=== PATIENT | female | born 1950 | race Caucasian/White ===

== ENCOUNTER 2022-07-08 06:55 | Inpatient (IN) | payer MEDICARE ==
[2022-07-04 13:52] LABS: BASOPHILS % 0.2 % (0.0-1.0); HEMATOCRIT 41.2 % (34.2-44.1); HEMOGLOBIN 13.8 g/dL (12.0-16.0); LYMPHOCYTES % 31.2 % (18.0-39.1); MEAN CORPUSCULAR HGB CONC 33.5 g/dL (31-35); MEAN CORPUSCULAR VOLUME 95.6 fL (81-99); MONOCYTES # (AUTO) 0.5 (0.2-0.8); MONOCYTES % 8.1 % (4.4-11.3); NEUTROPHILS # (AUTO) 3.8 (2.1-6.9); NEUTROPHILS % 59.7 % (38.7-80.0); PLATELET COUNT 252 x10e3/uL (140-360); RED BLOOD COUNT 4.31 x10e6/uL (3.6-5.1)
[~2022-07-08] VITALS: Ht 162.6 cm; Wt 102.1 kg
[~2022-07-08 06:55] MED LIST: ALAWAY10 ML OP/OT; ATIVAN1 MG PO; BOTOX100 UNIT IV; CLARITIN10 MG PO; DYMISTA NASAL S23 GM INH; ESTRACE42.5 GM TOP; NITROFURANTOIN100 M1 PO; OMEPRAZOLE40 MG PO; SOOTHE LUBRICA1 EACH; VALACYCLOVIR500 MG PO; VITAMIN B-121000 MCG PO; VITAMIN D350 MCG PO; VITAMIN E400 UNI1 PO; ZINC PO
[2022-07-08] MEDS ORDERED: FAMOTIDINE 20 MG/2 ML VIAL IV ONE (07:00)
[2022-07-08] MEDS ORDERED: SCOPOLAMINE 1 MG PATCH ONE (07:29)
[2022-07-08] MEDS ORDERED: BUPIVACAINE 0.25% 30ML SDV ONE (07:41)
[2022-07-08] MEDS ORDERED: FENTANYL CITRATE/PF 100MCG/2 ML INJ ONE (09:15)
[2022-07-08] MEDS ORDERED: ONDANSETRON HCL INJ 2MG/ML 2ML 2 MG/ML VIAL ONE (09:33)
[2022-07-08] MEDS ORDERED: HYDROMORPHONE 1MG/1ML INJ ONE (09:35)
[2022-07-08] MEDS ORDERED: PROMETHAZINE HCL (IM) 25 MG/ML VIAL IM ONE (09:57)
[2022-07-08] MEDS: ONDANSETRON HCL INJ 2MG/ML 2ML 2 MG/ML VIAL IV PRN ×3 (12:32→23:09)
[2022-07-08] MEDS: SODIUM CHLORIDE 0.9% 1000ML 1,000 ML IV SCH ×2 (12:32→22:57)
[2022-07-08] MEDS: Morphine 2mg Syringe 2 MG/ML SYR IV PRN ×4 (12:33→22:59)
[2022-07-08 12:50] VITALS: BP 159/68
[2022-07-08] MEDS ORDERED: SCOPOLAMINE 1 MG PATCH TOP SCH (14:00)
[2022-07-08 20:00] VITALS: BP 151/73
[2022-07-08 21:00] VITALS: BP 151/43
[2022-07-08] MEDS: ENOXAPARIN SOD INJ 40 MG/0.4 ML SYR SC SCH (22:58)
[2022-07-09] VITALS: BP 127/61
[2022-07-09] MEDS: HYDROCODONE/APAP 7.5MG-325MG 1 EA TAB PO PRN ×2 (03:49→08:05)
[2022-07-09 04:00] VITALS: BP 115/74
[2022-07-09] MEDS: SODIUM CHLORIDE 0.9% 1000ML 1,000 ML IV SCH (05:00)
[2022-07-09 06:45] LABS: BASOPHILS % 0.1 % (0.0-1.0); HEMATOCRIT 39.4 % (34.2-44.1); HEMOGLOBIN 12.6 g/dL (12.0-16.0); LYMPHOCYTES # (AUTO) 1.1 (1.0-3.2); LYMPHOCYTES % 9.9 % (18.0-39.1); MONOCYTES # (AUTO) 1.2 (0.2-0.8); MONOCYTES % 10.6 % (4.4-11.3); NEUTROPHILS # (AUTO) 9.1 (2.1-6.9); NEUTROPHILS % 79.2 % (38.7-80.0); PLATELET COUNT 266 x10e3/uL (140-360); RED BLOOD COUNT 3.94 x10e6/uL (3.6-5.1); RED CELL DISTRIBUTION WIDTH 12.7 % (11.7-14.4)
[2022-07-09] MEDS ORDERED: PANTOPRAZOLE SOD 40 MG TABEC PO SCH (07:30)
[2022-07-09 07:45] LABS: ALBUMIN 3.3 g/dL (3.5-5.0); ALBUMIN/GLOBULIN RATIO 1.3 (0.8-2.0); ANION GAP 14.9 mmol/L (8-16); CALCIUM 8.5 mg/dL (8.4-10.2); CREATININE, SERUM 0.75 mg/dL (0.57-1.11); MAGNESIUM 1.9 MG/DL (1.3-2.1); POTASSIUM 3.9 mmol/L (3.5-5.1)
[2022-07-09 08:05] LABS: PHOSPHORUS 2.6 MG/DL (2.3-4.7)
[2022-07-09] MEDS: ENOXAPARIN SOD INJ 40 MG/0.4 ML SYR SC SCH (08:05)
[2022-07-09 08:10] VITALS: BP 115/74
[2022-07-09 08:29] VITALS: BP 127/62
[2022-07-09] MEDS ORDERED: NITROFURANTOIN MACROCRYSTALS 100 MG CAP PO SCH (09:00)
== END 2022-07-09 10:41 | disposition home or self-care (01) | DRG 621 ==
LOC: OR 06:55 → PACU V 10:35 → MED/SURG2 12:02
PROVIDERS: ADMIT Internal Medicine; ATTEND Internal Medicine
PROC: 0DB64Z3 Excision of Stomach, Percutaneous Endoscopic Approach, Vertical (ICD-10-PCS; principal; 2022-07-08 07:36)
DX: E66.01 Morbid (severe) obesity due to excess calories (principal); Z68.41 Body mass index [BMI] 40.0-44.9, adult; K21.9 Gastro-esophageal reflux disease without esophagitis; I11.9 Hypertensive heart disease without heart failure; E78.5 Hyperlipidemia, unspecified; Z79.899 Other long term (current) drug therapy; N32.81 Overactive bladder; Z20.822 Contact with and (suspected) exposure to COVID-19
CPT/HCPCS: 0223U; 36415; 71046; 80053; 83735; 84100; 85025; 93005; 94799; C1713; J1170; J1650; J2270; J2405; J2550; J3010; J7030